=== PATIENT | female | born 1995 | race Caucasian/White ===

== ENCOUNTER 2017-06-04 06:16 | Emergency (ER) | payer BC, OTHER | END 2017-06-04 08:55 | disposition home or self-care (01) | LOC: FTE 06:16 | DX: R05 Cough (principal); J45.909 Unspecified asthma, uncomplicated | CPT/HCPCS: 71045; 99284-25 ==

== ENCOUNTER 2017-10-26 20:41 | Emergency (ER) | payer BC | END 2017-10-27 01:41 | disposition home or self-care (01) | LOC: FTE 10-27 01:41 | DX: S06.0X1A Concussion with loss of consciousness of 30 minutes or less, initial encounter (principal); W18.09XA Striking against other object with subsequent fall, initial encounter; Y92.9 Unspecified place or not applicable | CPT/HCPCS: 70450; 99284-25 ==